=== PATIENT | female | born 1960 | race Caucasian/White ===

== ENCOUNTER 2018-12-04 13:47 | Emergency (ER) | payer MEDICARE ==
[~2018-12-04] VITALS: Ht 170.2 cm; Wt 84.4 kg
[~2018-12-04 13:47] MED LIST: ALPR0.25; OXYCONTIN; PRILOSEC; [UNRECOGNIZED DRUG - OTHER]; [UNRECOGNIZED DRUG - OTHER]; [UNRECOGNIZED DRUG - OTHER]
[2018-12-04] MEDS ORDERED: KETOROLAC TROMETH 60MG/2ML VIAL IM ONE (15:45)
[2018-12-04 15:57] VITALS: BP 127/85
== END 2018-12-04 16:00 | disposition home or self-care (01) ==
LOC: EDBD 13:47 → ER 13:53 → MERGE 13:53 → ER 16:00
DX: S70.01XA Contusion of right hip, initial encounter (principal); R51 Headache; M19.90 Unspecified osteoarthritis, unspecified site; Z88.5 Allergy status to narcotic agent; Z88.8 Allergy status to other drugs, medicaments and biological substances; W01.10XA Fall on same level from slipping, tripping and stumbling with subsequent striking against unspecified object, initial encounter; Y93.89 Activity, other specified; Y99.8 Other external cause status; Y92.89 Other specified places as the place of occurrence of the external cause
CPT/HCPCS: 70450; 96372; 99284; J1885

== ENCOUNTER 2022-06-09 02:45 | Emergency (ER) | payer MEDICARE, OTHER ==
[~2022-06-09] VITALS: Ht 170.2 cm; Wt 63.6 kg
[2022-06-09] MEDS ORDERED: SODIUM CHLORIDE 0.9% 1,000 ML IV ONE (03:45)
[2022-06-09 04:16] LABS: Basophils # (auto) 0.1 10 ^3/uL (0-0.2); Basophils % (auto) 1.2 % (0.0-2.0); Eosinophils # (auto) 0.1 10 ^3/uL (0-0.8); Eosinophils % (auto) 1.4 % (0.0-7.0); Hematocrit 36.2 % (36.0-46.0); Hemoglobin 12.5 g/dL (12.2-16.2); Lymphocytes # (auto) 3.7 10 ^3/uL (0.4-5.4); Mean Corpuscular Hemoglobin 30.4 pg (28.0-32.0); Mean Corpuscular Hgb Conc. 34.5 g/dL (32.0-36.0); Mean Corpuscular Volume 88.1 fL (80.0-100.0); Monocytes # (auto) 0.5 10 ^3/uL (0-1.3); Neutrophils # (auto) 3.6 10 ^3/uL (1.6-8.6); Neutrophils % (auto) 45.4 % (37.0-80.0); Nucleated Red Blood Cells % 0.1 %; Red Blood Cells 4.11 10^6/uL (4.0-5.20)
[2022-06-09 04:28] LABS: Albumin 2.8 g/dL (3.4-5.0); BUN/Creatinine Ratio 37.3 (10.0-20.0); Calcium 7.4 mg/dL (8.5-10.1); Magnesium 1.9 mg/dL (1.6-2.6)
[2022-06-09 04:30] LABS: Bilirubin, Total 0.1 mg/dL (0.2-1.0); Total Protein 5.4 g/dL (6.4-8.2)
[2022-06-09 04:31] LABS: Acetaminophen 16.2 ug/mL (10-30); Salicylate 3.8 mg/dL (2.8-20.0)
[2022-06-09 04:47] LABS: Potassium 2.9 mmol/L (3.5-5.1)
[2022-06-09] MEDS ORDERED: POTASSIUM CHL 20MEQ/100ML 100 ML IV SCH (05:15)
[2022-06-09 07:25] VITALS: BP 112/80
== END 2022-06-09 08:01 | disposition left against medical advice (07) ==
LOC: ER 02:45 → EDBD 02:45 → ER 08:01
DX: R00.1 Bradycardia, unspecified (principal); E87.6 Hypokalemia; T42.4X1A Poisoning by benzodiazepines, accidental (unintentional), initial encounter; R41.0 Disorientation, unspecified; F17.210 Nicotine dependence, cigarettes, uncomplicated; Z90.710 Acquired absence of both cervix and uterus; Y92.89 Other specified places as the place of occurrence of the external cause
CPT/HCPCS: 36415; 70450; 71045; 80053; 80320; 80329; 83735; 85025; 93005; 96361; 96365; 96366; 99291; J3480; J7030

== ENCOUNTER 2024-04-06 02:03 | Inpatient (IN) | payer BC, OTHER ==
[~2024-04-06] VITALS: Ht 167.6 cm; Wt 62.2 kg
--- NOTE | 2024-04-06 02:20 | ED.PDOC ---
History of Present Illness HPI Comments 63-year-old female came to the emergency room via EMS for shortness of breath. Patient has history of hypertension and COPD. Her the ground level fall last week, and she broke 7-8th left rib. 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 Allergies: Coded Allergies: Erythromycin (Unverified Allergy, Mild, 01/14/10) PT STATES SHE GETS A RASH Codeine (Verified Allergy, Unknown, 04/26/15) Diphenhydramine (Verified Allergy, Unknown, 12/05/18) Sulfamethoxazole w/Trimethoprim (Verified Allergy, Unknown, 01/10/16) Uncoded Allergies: ANTIHISTAMINES (Allergy, Unknown, 04/26/15) STEROIDS (Allergy, Unknown, 04/26/15) Home Meds Reported Medications [Prilosec] No Conflict Check 01/13/10 [Citoderm Patch] No Conflict Check 01/13/10 Alprazolam (Xanax) 0.25 Mg Tb 01/13/10 [Feorinal] No Conflict Check 01/13/10 [Oxycontin] No Conflict Check 01/13/10 [Tygan] No Conflict Check 01/13/10 Information Source: Patient, Emergency Med Personnel Mode of Arrival: EMS Severity: Moderate Timing: Hours Duration: Since onset Prehospital treatment: None Past Medical History PAST MEDICAL HISTORY: Anxiety, Cancer, COPD, HTN Past Medical History (Other): Chronic back pain Surgical History: , Hysterectomy Surgical History (Other): Left knee surgery LAPEL PADDER History: No Pertinent LAPEL PADDER History Family History Family History: Unobtainable Social History Smoker: Cigarettes, Less Than 1 Pack/Day Alcohol: Denies ETOH Use Drugs: Denies Drug Use Lives In: Home Constitutional: denies: chills, diaphoresis, fatigue, fever, malaise, sweats, weakness, others EENTM: denies: blurred vision, double vision, ear bleeding, ear discharge, ear drainage, ear pain, ear ringing, eye pain, eye redness, hearing loss, mouth pain, mouth swelling, nasal discharge, nose bleeding, nose congestion, nose pain, photophobia, tearing, throat pain, throat swelling, voice changes, others Respiratory: reports: SOB with excertion; denies: cough, hemoptysis, orthopnea, SOB at rest, shortness of breath, stridor, wheezing, others Cardiovascular: reports: chest pain; denies: dizzy spells, diaphoresis, Dyspnea on exertion, edema, irregular heart beat, left arm pain, lightheadedness, pal pitations, PND, syncope, others Gastrointestinal: denies: abdomen distended, abdominal pain, blood streaked bowels, constipated, diarrhea, dysphagia, difficulty swallowing, hematemesis, melena, nausea, poor appetite, poor fluid intake, rectal bleeding, rectal pain, vomiting, others Genitourinary: denies: abnormal vagina bleeding, burning, dyspareunia, dysuria, flank pain, frequency, hematuria, incontinence, pain, , vagina discharge, urgency, others Neurological: denies: dizziness, fainting, headache, left sided numbness, left sided weakness, numbness, paresthesia, pre-existing deficit, right sided numbness, right sided weakness, seizure, speech problems, tingling, tremors, weakness, others Musculoskeletal: denies: back pain, gout, joint pain, joint swelling, muscle pain, muscle stiffness, neck pain, others Integumetry: denies: bruises, change in color, change in hair/nails, dryness, laceration, lesions, lumps, rash, wounds, others Allergic/Immunocompromised: denies: Difficulty Healing, Frequent Infections, Hives, Itching, others Hematologic/Lymphatic: denies: anemia, blood clots, easy bleeding, easy b ruising, swollen glands, others Endocrine: denies: excessive hunger, excessive sweating, excessive thirst, excessive urination, flushing, intolerance to cold, intolerance to heat, unexplained weight gain, unexplained weight loss, others Psychiatric: denies: anxiety, bipolar disorder, depression, hopeless, panic disorder, schizophrenia, sleepless, suicidal, others Physical Exam General Appearance: No Apparent Distress, Normal HEENT: Normal ENT Inspection, Pharynx Normal, TMs Normal Neck: Full Range of Motion, Non-Tender, Normal, Normal Inspection Respiratory: Chest Non-Tender, Lungs Clear, No Accessory Muscle Use, No Respiratory Distress, Normal Breath Sounds Cardiovascular: No Edema, No JVD, No Murmur, No Gallop, Normal Peripheral Pulses, Regular Rate/Rhythm Breast Exam: Deferred Gastrointestinal: No Organomegaly, Non Tender, No Pulsatile Mass, Normal Bowel Sounds, Soft Genitalia: Deferred Pelvic: Deferred Rectal: Deferred Extremities: No calf tenderness, Normal capillary refill, Normal inspection, Normal range of motion, Non-tender, No pedal edema Musculoskeletal : Apperance: Normal Neurologic: Alert, color grinder II-XII nml as Tested, No Motor Deficits, Normal Affect, Normal Mood, No Sensory Deficits Cerebellar Function: Normal Reflexes: Normal Skin: Dry, Normal Color, Warm Lymphatic: No Adenopathy Was a procedure done? Was a procedure done?: No Differential Dx Considerations may include: Rib Fractures, pneumonia, COPD, anemia, anxiety X-Ray, Labs, Meds, VS Vital Signs Date Time Temp Pulse Resp B/P (MAP) Pulse Ox O2 Delivery O2 Flow Rate FiO2 04/06/24 02:15 97.6 60 18 138/85 (102) 96 04/06/24 02:05 60 Lab Test 04/06/24 02:20 Range/Units White Blood Count 7.2 4.4-10.8 10^3/uL Red Blood Count 4.51 4.0-5.20 10^6/uL Hemoglobin 13.4 12.2-16.2 g/dL Hematocrit 40.6 36.0-46.0 % Mean Corpuscular Volume 90.0 80.0-100.0 fL Mean Corpuscular Hemoglobin 29.7 28.0-32.0 pg Mean Corpuscular Hemoglobin Concent 33.0 32.0-36.0 g/dL Red Cell Distribution Width 14.5 H 11.8-14.3 % Platelet Count 362 140-450 10^3/uL Mean Platelet Volume 7.6 6.9-10.8 fL Neutrophils (%) (Auto) 50.4 37.0-80.0 % Lymphocytes (%) (Auto) 37.6 10.0-50.0 % Monocytes (%) (Auto) 8.6 0.0-12.0 % Eosinophils (%) (Auto) 1.5 0.0-7.0 % Basophils (%) (Auto) 1.9 0.0-2.0 % Neutrophils # (Auto) 3.6 1.6-8.6 10 ^3/uL Lymphocytes # (Auto) 2.7 0.4-5.4 10 ^3/uL Monocytes # (Auto) 0.6 0-1.3 10 ^3/uL Eosinophils # (Auto) 0.1 0-0.8 10 ^3/uL Basophils # (Auto) 0.1 0-0.2 10 ^3/uL Nucleated Red Blood Cells 0.0 % Sodium Level 142 136-145 mmol/L Potassium Level 4.5 3.5-5.1 mmol/L Chloride Level 107 98-107 mmol/L Carbon Dioxide Level 33 H 20-31 mmol/L Anion Gap 2 L 5-15 Blood Urea Nitrogen 8 L 9-23 mg/dL Creatinine 0.72 0.550-1.02 mg/dL Glomerular Filtration Rate Calc 94 >90 mL/min BUN/Creatinine Ratio 11.1 10.0-20.0 Serum Glucose 86 74-106 mg/dL Calcium Level 9.7 8.7-10.4 mg/dL Time of 1ST Reevaluation: 02:14 Reevaluation 1ST: Unchanged Patient Education/Counseling: Diagnosis, Treatment Family Education/Counseling: No Family Present Departure 1 Departure Time of Disposition: 04:21 (Patient with worsening shortness of breath. Labs and x-rays are benign. We will admit patient for further workup and expert consultation) Impression: Primary Impression: Shortness of breath Disposition: ADMITTED INPATIENT Admit to: Med Surg Condition: Serious Critical Care Note Critical Care Time?: No Stability Stability form required: No Heart Score Heart Score: Heart Score Response (Comments) Value History N/A 0 EKG N/A 0 Age N/A 0 Risk Factors N/A 0 Troponin N/A 0 Total 0 I personally scribed for CORETTA SHERIFF MD ([email or web address]) on 04/06/24 at 02:20. Electronically submitted by Fernando Rodriguez ([email or web address]). CORETTA SHERIFF MD Apr 06, 2024 02:20
[2024-04-06 02:33] LABS: Basophils # (auto) 0.1 10 ^3/uL (0-0.2); Basophils % (auto) 1.9 % (0.0-2.0); Eosinophils # (auto) 0.1 10 ^3/uL (0-0.8); Eosinophils % (auto) 1.5 % (0.0-7.0); Hematocrit 40.6 % (36.0-46.0); Hemoglobin 13.4 g/dL (12.2-16.2); Lymphocytes # (auto) 2.7 10 ^3/uL (0.4-5.4); Lymphocytes % (auto) 37.6 % (10.0-50.0); Mean Corpuscular Hemoglobin 29.7 pg (28.0-32.0); Monocytes # (auto) 0.6 10 ^3/uL (0-1.3); Monocytes % (auto) 8.6 % (0.0-12.0); Neutrophils # (auto) 3.6 10 ^3/uL (1.6-8.6); Neutrophils % (auto) 50.4 % (37.0-80.0); Platelet Count (auto) 362 10^3/uL (140-450); Red Blood Cells 4.51 10^6/uL (4.0-5.20); Red Cell Distribution Width 14.5 % (11.8-14.3); White Blood Cell 7.2 10^3/uL (4.4-10.8)
[2024-04-06 02:42] LABS: Potassium 4.5 mmol/L (3.5-5.1); Sodium 142 mmol/L (136-145)
[2024-04-06 02:43] LABS: Anion Gap 2 (5-15)
[2024-04-06 02:44] LABS: Calcium 9.7 mg/dL (8.7-10.4)
[2024-04-06 02:48] LABS: BUN/Creatinine Ratio 11.1 (10.0-20.0); Glucose 86 mg/dL (74-106)
[2024-04-06 02:59] LABS: Blood Urea Nitrogen 8 mg/dL (9-23); Carbon Dioxide 33 mmol/L (20-31); Chloride 107 mmol/L (98-107)
--- NOTE | 2024-04-06 04:08 | DVH ---
Examination: CXR2 Clinical Indication: left sided chest wall pain Comparison: None. Technique: Frontal and lateral radiograph of the chest was obtained. Findings: Right diaphragmatic hump is identified. Lungs are clear and well expanded with no pulmonary infiltrate or pleural effusion. There is no pneu mothorax. The cardiomediastinal silhouette is within normal limits. Atherosclerotic calcification of the aorti c arch. No acute osseous abnormality is seen. Degenerative changes in the cervical spine, mid and lower thor acic spine. Impression: No acute cardiopulmonary disease is seen. Electronically Signed 04/06/2024 04:06 Jeremy Matt
[2024-04-06] MEDS ORDERED: MORPHINE SULFATE INJ 2 MG/ml SYRG IV PRN (05:15)
[2024-04-06] MEDS ORDERED: ONDANSETRON HCL 4 MG/2 ML VIAL IV PRN (05:15)
[2024-04-06] MEDS ORDERED: NITROGLYCERIN 0.4 MG SL TAB SL PRN (05:15)
[2024-04-06] MEDS ORDERED: DOCUSATE SOD 100 MG CAP PO PRN (05:15)
[2024-04-06] MEDS ORDERED: ACETAMINOPHEN 325 MG TAB PO PRN (05:15)
--- NOTE | 2024-04-06 05:21 | DVHHP2 ---
History of Present Illness Reason for Visit: COPD with acute exacerbation History of Present Illness The patient is a 63-year-old female past medical history of chronic back pain, cancer, COPD, hypertension, and anxiety who presented to [facility] ED with complaint of shortness of breaths. Patient reports she had ground level fall last week with fractured injury in the 7- 8th left ribs, experiencing when coughing, increased work of breathing, left-sided chest pain, getting worse that prompted this visit. Patient was seen and evaluated in the ED, laboratory data shows WBC 7.2, platelets 362, sodium 142, potassium 4.5, BUN 8, creatinine 0.72, GFR 94, glucose 86, blood pressure 138/85, heart rate 62, temperature 97.6 F, O2 saturation 96% on oxygen. Please see medication orders section in the computer. On my assessment, patient denies chest pain at this moment, no headache, no dizziness, no diaphoresis, no abdominal pain, no diarrhea, no nausea, no vomiting, no fever, no chills. Patient was admitted for further evaluation and medical management. Past Medical History Anxiety, Cancer, COPD, HTN, Chronic back pain Past Surgical History , Hysterectomy, Left knee surgery Family History Reviewed, noncontributory to the management of this case. Past Social History The patient lives at home, denies smoking, alcohol or illicit drugs abuse. Review of Systems Constitutional: Yes: Weakness; No: Fever, Chills, Sweats, Malaise, Other Eyes: No: Pain, Vision change, Conjunctivae inflammation, Eyelid inflammation, Other, Redness ENT: No: Ear pain, Ear discharge, Nose pain, Nose discharge, Nose congestion, Mouth pain, Mouth swelling, Throat pain, Throat swelling, Other Respiratory: SOB with excertion; No: Cough, Dry, Shortness of breath, Wheezing, Hemoptysis, Pleuritic Pain, Sputum, Wheezing, Other Cardiovascular: Chest Pain; No: Palpitations, Orthopnea, Paroxysmal Noc. Dyspnea, Edema, Lt Headedness, Other Gastrointestinal: No: Nausea, Vomiting, Abdominal Pain, Diarrhea, Constipation, Melena, Hematochezia, Other Genitourinary: No Dysuria, No Frequency, No Incontinence, No Hematuria, No Retention, No Other Musculoskeletal: No: other, neck pain, shoulder pain, arm pain, back pain, hand pain, leg pain, foot pain Skin: No: Rash, Lesions, Jaundice, Bruising, Other Neurological: No: Weakness, Numbness, Incoordination, Change in speech, Confusion, Seizures, Other Allergies: Coded Allergies: Erythromycin (Unverified Allergy, Mild, 01/14/10) PT STATES SHE GETS A RASH Codeine (Verified Allergy, Unknown, 04/26/15) Diphenhydramine (Verified Allergy, Unknown, 12/05/18) Sulfamethoxazole w/Trimethoprim (Verified Allergy, Unknown, 01/10/16) Uncoded Allergies: ANTIHISTAMINES (Allergy, Unknown, 04/26/15) STEROIDS (Allergy, Unknown, 04/26/15) Exam Vital Signs Vital Signs Date Time Temp Pulse Resp B/P (MAP) Pulse Ox O2 Delivery O2 Flow Rate FiO2 04/06/24 02:15 97.6 60 18 138/85 (102) 96 General Appearance: Alert, Oriented X3, Cooperative, No acute distress HEENT: Atraumatic, PERRLA, EOMI, Mucous membr. moist/pink Respiratory: Clear to auscultation, Normal air movement Cardiovascular: Regular rate, Normal S1, Normal S2, No murmurs Abdominal: Normal bowel sounds, Soft, No tenderness, No hepatospenomegaly, No masses Extremities: No clubbing, No cyanosis, No edema, Normal pulses, No tenderness/swelling Skin: No rashes, No breakdown, No significant lesion Neuro: Normal speech, Normal tone, Sensation intact, Cranial nerves 3-12 NL, Reflexes 2+, Other (Generalized weakness) Psych/Mental Status: Mental status NL, Mood NL Labs/Xrays Labs Test 04/06/24 02:20 Range/Units White Blood Count 7.2 4.4-10.8 10^3/uL Red Blood Count 4.51 4.0-5.20 10^6/uL Hemoglobin 13.4 12.2-16.2 g/dL Hematocrit 40.6 36.0-46.0 % Mean Corpuscular Volume 90.0 80.0-100.0 fL Mean Corpuscular Hemoglobin 29.7 28.0-32.0 pg Mean Corpuscular Hemoglobin Concent 33.0 32.0-36.0 g/dL Red Cell Distribution Width 14.5 H 11.8-14.3 % Platelet Count 362 140-450 10^3/uL Mean Platelet Volume 7.6 6.9-10.8 fL Neutrophils (%) (Auto) 50.4 37.0-80.0 % Lymphocytes (%) (Auto) 37.6 10.0-50.0 % Monocytes (%) (Auto) 8.6 0.0-12.0 % Eosinophils (%) (Auto) 1.5 0.0-7.0 % Basophils (%) (Auto) 1.9 0.0-2.0 % Neutrophils # (Auto) 3.6 1.6-8.6 10 ^3/uL Lymphocytes # (Auto) 2.7 0.4-5.4 10 ^3/uL Monocytes # (Auto) 0.6 0-1.3 10 ^3/uL Eosinophils # (Auto) 0.1 0-0.8 10 ^3/uL Basophils # (Auto) 0.1 0-0.2 10 ^3/uL Nucleated Red Blood Cells 0.0 % Sodium Level 142 136-145 mmol/L Potassium Level 4.5 3.5-5.1 mmol/L Chloride Level 107 98-107 mmol/L Carbon Dioxide Level 33 H 20-31 mmol/L Anion Gap 2 L 5-15 Blood Urea Nitrogen 8 L 9-23 mg/dL Creatinine 0.72 0.550-1.02 mg/dL Glomerular Filtration Rate Calc 94 >90 mL/min BUN/Creatinine Ratio 11.1 10.0-20.0 Serum Glucose 86 74-106 mg/dL Calcium Level 9.7 8.7-10.4 mg/dL PATIENT: SARABJIT LYONS DACCT: [id number] UNIT: [id number] : 1960 LOC: ER ROOM / BED: / AGE / SEX: 63 / F ADM STATUS: REG ER SERVICE 1 ORDERING PHYSICIAN: CORETTA SHERIFF MD PROCEDURE(s): CXR2 - CHEST TWO VIEWS ROUTINE REASON: left sided chest wall pain ORDER NUMBER(s): [id number], ACCESSION NUMBER(s): [id number] Examination: CXR2 Clinical Indication: left sided chest wall pain Comparison: None. Technique: Frontal and lateral radiograph of the chest was obtained. Findings: Right diaphragmatic hump is identified. Lungs are clear and well expanded with no pulmonary infiltrate or pleural effusion. There is no pneumothorax. The cardiomediastinal silhouette is within normal limits. Atherosclerotic calcification of the aortic arch. No acute osseous abnormality is seen. Degenerative changes in the cervical spine, mid and lower thoracic spine. Impression: No acute cardiopulmonary disease is seen. Assessment/Plan Assessment/Plan Acute respiratory distress Generalized weakness Plan 1. Admit to telemetry unit 2. Breathing treatment 3. Pain control management 4. Management of fluids and electrolytes 5. Consultation for pulmonology 6. Diagnostic tests chest x-ray 7. DVT prophylaxis-on SCDs 8. Repeat labs CBC, CMP in a.m. 9. Continue with current medical management 10. Treatment plan discussed with patient and RN. Patient verbalized understanding. Plan discussed with: Patient, Other My Orders Orders - ALTHEA CLEVELAND DNP Procedure Category Date Status Time Complete Blood Count LAB 04/06/24 Transmitted 05:15 Basic Metabolic Panel LAB 04/06/24 Transmitted 05:15 Sodium Chloride Lock PHA 04/06/24 Transmitted (Saline Lock Ns) 06:00 Oxygen Per Hour RT 04/06/24 Transmitted 05:15 Ondansetron Hcl PHA 04/06/24 Transmitted (Zofran) 05:15 Docusate Sodium PHA 04/06/24 Transmitted Capsule (Colace 05:15 Fall Risk Precautions [facility] 04/06/[address] 05:15 Complete Blood Count LAB 04/07/24 Verified 04:00 Comprehensive LAB 04/07/24 Verified Metabolic Panel 04:00 Cardiac DIET 04/06/24 Transmitted Diet-2gna,Lofat,Lochol Breakfast Condition: Serious LC 04/06/24 Transmitted 05:15 Acetaminophen Tablet [facility] 04/06/24 Transmitted (Tylenol Tablet) 05:15 Sequential [facility] 04/06/24 Verified Compression Device Nitroglycerin [facility] 04/06/24 Verified Sublingual (Ntrostat 05:15 Morphine Sulfate [facility] 04/06/24 Verified Injection 05:15 Stat Ekg For Chest [facility] 04/06/24 Verified Pain 05:15 Notify Md Of Changes [facility] 04/06/24 Verified From Base 05:15 Cargo Trimmer For [facility] 04/06/24 Verified 24 Hours 05:15 Emergency Dysrhythmia [facility] 04/06/24 Verified Protocol 05:15 Rhythm Strips Once [facility] 04/06/24 Verified Every Shift 05:15 Oxygen By Nasal RT 04/06/24 Verified Cannula 05:15 *Consult CONS 04/06/24 Transmitted / 05:15 Admit ADMIT 04/06/24 Transmitted 05:15 Allergies LC 04/06/24 Transmitted 05:15 Code Status CODE 04/06/24 Transmitted 05:15 Problem List: (1) Acute respiratory distress (2) Generalized weakness Date of Service: Apr 06, 2024 Billing Provider: ALTHEA CLEVELAND DNP Common Visit Codes: [id number] INP/OBS CARE (HIGH) ALTHEA CLEVELAND DNP Apr 06, 2024 05:21
[2024-04-06 06:22] VITALS: PULSE 73; RESP 16; O2SAT 97
[2024-04-06] MEDS: SODIUM CHLOR 0.9% PF (SALINE LOCK) 10ML VIAL/SYR IV SCH (06:31)
--- NOTE | 2024-04-06 07:03 | ECG ---
[facility] Test Date: 2024-04-06 Test Time: 02:05:50 Pat Name: SARABJIT LYONS Department: er Room: [address] [place] [address] Gender: F Senior Contracts Administrator: aubrie : 1960 Requested By: EMERGENCY EMERGENCY Order Number: [id number] Reading MD: Herve Cooper Measurements Intervals Gerry Rate: 60 P: -16 ME: 139 QRS: 2 QRSD: 115 T: 12 QT: 455 QTc: 455 Interpretive Statements Sinus rhythm Nonspecific intraventricular conduction delay Nonspecific T abnormalities, anterior leads Electronically Signed On 04-06-2024 17:19:48 PST by Herve Cooper Please click the below link to view image of tracing.
[2024-04-06 07:33] VITALS: PULSE 62; RESP 16; O2SAT 97
[2024-04-06 10:30] VITALS: BP 177/95; PULSE 63; RESP 16; TEMP 97.7; O2SAT 96
[2024-04-06 10:42] VITALS: BP 177/95; PULSE 63; RESP 16; TEMP 97.7; O2SAT 96
[2024-04-06 12:00] VITALS: BP 167/137; PULSE 66; RESP 16; TEMP 97.7; O2SAT 97
[2024-04-06] MEDS ORDERED: ALPR2TAB2 PO ×2 (12:09→15:48)
[2024-04-06] MEDS ORDERED: PERCOT PO (12:09)
[2024-04-06] MEDS ORDERED: OXYC-963 (12:26)
[2024-04-06] MEDS ORDERED: LOSA-534 PO (12:30)
[2024-04-06] MEDS ORDERED: ESCI1TAB37 PO (12:30)
[2024-04-06] MEDS ORDERED: BUTA1CAP PO (12:30)
[2024-04-06] MEDS: OXYCODONE W/ ACETAMINOPHEN 5/325MG TABLET PO PRN (13:45)
--- NOTE | 2024-04-06 15:26 | DVH ---
XY L RIB X RAY HISTORY: concern for rib Fx 7-8 TECHNICAL DATA: Frontal and oblique views were obtained of the left ribs. COMPARISON: None FINDINGS: Mildly displaced fracture of the lateral 7th rib. Bone density and trabeculation are normal. IMPRESSION: Mildly displaced fracture of the lateral 7th rib.
[2024-04-06] MEDS: ALPRAZolam 0.5 MG TAB PO ONE (15:47)
[2024-04-06] MEDS ORDERED: PRED20TA2 PO (15:48)
[2024-04-06] MEDS ORDERED: AZIT500T66 PO (15:48)
--- NOTE | 2024-04-06 15:57 | DVHDS2 ---
Discharge Summary Date of Admission Apr 06, 2024 at 05:15 Date of Discharge: Apr 06, 2024 Admitting Diagnosis Shortness of breaths Labs/Diagnostic Data: Laboratory Results Test 04/06/24 02:20 White Blood Count 7.2 10^3/uL (4.4-10.8) Red Blood Count 4.51 10^6/uL (4.0-5.20) Hemoglobin 13.4 g/dL (12.2-16.2) Hematocrit 40.6 % (36.0-46.0) Mean Corpuscular Volume 90.0 fL (80.0-100.0) Mean Corpuscular Hemoglobin 29.7 pg (28.0-32.0) Mean Corpuscular Hemoglobin Concent 33.0 g/dL (32.0-36.0) Red Cell Distribution Width 14.5 % (11.8-14.3) Platelet Count 362 10^3/uL (140-450) Mean Platelet Volume 7.6 fL (6.9-10.8) Neutrophils (%) (Auto) 50.4 % (37.0-80.0) Lymphocytes (%) (Auto) 37.6 % (10.0-50.0) Monocytes (%) (Auto) 8.6 % (0.0-12.0) Eosinophils (%) (Auto) 1.5 % (0.0-7.0) Basophils (%) (Auto) 1.9 % (0.0-2.0) Neutrophils # (Auto) 3.6 10 ^3/uL (1.6-8.6) Lymphocytes # (Auto) 2.7 10 ^3/uL (0.4-5.4) Monocytes # (Auto) 0.6 10 ^3/uL (0-1.3) Eosinophils # (Auto) 0.1 10 ^3/uL (0-0.8) Basophils # (Auto) 0.1 10 ^3/uL (0-0.2) Nucleated Red Blood Cells 0.0 % Sodium Level 142 mmol/L (136-145) Potassium Level 4.5 mmol/L (3.5-5.1) Chloride Level 107 mmol/L (98-107) Carbon Dioxide Level 33 mmol/L (20-31) Anion Gap 2 (5-15) Blood Urea Nitrogen 8 mg/dL (9-23) Creatinine 0.72 mg/dL (0.550-1.02) Glomerular Filtration Rate Calc 94 mL/min (>90) BUN/Creatinine Ratio 11.1 (10.0-20.0) Serum Glucose 86 mg/dL (74-106) Calcium Level 9.7 mg/dL (8.7-10.4) Other Laboratory Tests 04/06/24 02:20 Brief Hx & Hospital Course: hpi: 63-year-old female past medical history of chronic back pain, cancer, COPD, hypertension, and anxiety who presented to [facility] ED with complaint of shortness of breaths. Patient reports she had ground level fall last week with fractured injury in the 7- 8th left ribs, experiencing when coughing, increased work of breathing, left-sided chest pain, getting worse that prompted this visit. Hospital course: labs vitrals stable. cxr unconcerning. left ribs xray showing Mildly displaced fracture of the lateral 7th rib. Patient blood pressure is elevated but patient was asymptomatic and without any end-organ damage, we will have to control outpatient with PCP. stable otherwise. stable to discharge per plan below. discharge diagnosis: left rib fracture, mild displaced; acute sinusitis; pleurisy; uncontrolled hypertension; discharge plan: - azithromycin 500mg daily for x 5 days - prednisone 40mg daily for x 3days - abdominal binder for restrict fracture motion. - xanax refill short course - home conservative therapy for sinusitis (warm fluids/soups, OTC cold syrups/medications, steam breathing treatments 2xday) - refer to orthopedic surgery outpatient - follow-up with PCP for discharge review and for xanax/opiate refills. Optimize blood pressure control. - continue other home medications. Visitation and planning required 35 minutes Condition at Discharge: Fair Final Diagnosis/Problems List left rib fracture, mild displaced; acute sinusitis; pleurisy; uncontrolled hypertension; Discharge Disposition: Home Discharge Instruct/Medications Diet: Regular Activity: Light activity Follow Up/Referral: pcp, ortho, Medications: below Discharge Statement: "Patient was advised to return to the ER or call 911 if any headaches, dizziness, shortness of breath, chest pain, abdominal pain, bleeding, fevers, or worsening of medical condition. Patient was counseled about treatment plan, medications, possible side effects, patientverbalized understanding. All questions were answered to the best of my ability. This discharge took greater then 30 minutes in planning, reviewing documentation, counseling the patient, and discussing with other team members." ASSESSMENT ASSESSMENT Assessment left rib fracture, mild displaced; acute sinusitis; pleurisy; uncontrolled hypertension; Date of Service: Apr 06, 2024 Billing Provider: GEN LEAVITT MD Common Visit Codes: [id number]/[id number] DISCH DAY >30min GEN LEAVITT MD Apr 06, 2024 15:57
[2024-04-06 16:05] VITALS: BP 142/89; PULSE 86; RESP 18; TEMP 98.6; O2SAT 96
--- NOTE | 2024-04-06 20:32 | DVHINCON2 ---
Date of service: Apr 06, 2024 Referring Physician Hernandez Gloria NP Reason for Consultation Acute respiratory distress, COPD, rib fracture. History of Present Illness A 63-year-old woman with past medical history of COPD, hypertension, cancer, anxiety and chronic back pain, who presents to ED with complaint of shortness of breath. Patient reports a ground-level fall last week with injury of 7- 8th left ribs, experiencing pain with coughing, increased work of breathing, left- sided chest pain, getting worse that prompted this visit. Workup in ED showed WBC 7.2, platelets 362, sodium 142, potassium 4.5, BUN 8, creatinine 0.72, GFR 94, glucose 86. Vitals showed BP 138/85, heart rate 62, temperature 97.6 F, O2 saturation 96% on oxygen. Patient was admitted for further care and pulmonary consultation is requested for evaluation and management d/t acute respiratory distress, COPD, rib fracture. Review of Systems: 14-point review of systems negative unless otherwise noted above. Past Medical History: Anxiety, Cancer, COPD, HTN, Chronic back pain Past Surgical History: , Hysterectomy, Left knee surgery Medications: Reviewed. Allergies: Erythromycin Codeine Diphenhydramine Sulfamethoxazole w/Trimethoprim ANTIHISTAMINES STEROIDS Family History: Hypertension Leukemia. Depression Social History: Nonsmoker. No alcohol or illicit drug use. Family History: FH: depression Hypertension in father Hypertension in mother Leukemia Allergies: Coded Allergies: Erythromycin (Unverified Allergy, Mild, 01/14/10) PT STATES SHE GETS A RASH Codeine (Verified Allergy, Unknown, 04/26/15) Diphenhydramine (Verified Allergy, Unknown, 12/05/18) Sulfamethoxazole w/Trimethoprim (Verified Allergy, Unknown, 01/10/16) Uncoded Allergies: ANTIHISTAMINES (Allergy, Unknown, 04/26/15) STEROIDS (Allergy, Unknown, 04/26/15) Home Meds Active Scripts Prednisone (Prednisone) 20 Mg Tab, 40 MG PO DAILY for 3 Days, #6 MG 0 Refills Prov:GEN LEAVITT MD 04/06/24 Azithromycin (Azithromycin) 500 Mg Tab, 1 TAB PO DAILY, #5 TAB Prov:GEN LEAVITT MD 04/06/24 Alprazolam (Xanax) 2 Mg Tab, 1 TAB PO TID for 5 Days, #15 TAB 0 Refills Prov:GEN LEAVITT MD 04/06/24 Reported Medications Fmojxenqxc-Wfhkmzwgffyxh-Krcby (Butalbital/Acetaminophen/ 50-300-40 mg) 1 Cap Cap, 1 CAP PO PRN for PAIN SCALE 1 THRU 6 04/06/24 Escitalopram Oxalate (ESCITALOPRAM OXALATE) 20 Mg Tab, 1 TAB PO DAILY 04/06/24 Losartan Potassium (Losartan Potassium) 50 Mg Tab, 1 TAB PO BID for blood pressure 04/06/24 Oxycodone W/ Acetaminophen (Oxycodone/Acetaminophen 10-300 mg) 1 Tab Tab 04/06/24 Current Medications Current Medications Medications (Trade) Dose Ordered Sig/Greg Route PRN Reason Start Time Stop Time Status Last Admin Sodium Chloride (Saline Lock Ns) 10 ml Q8HR IV 04/06/24 06:00 04/06/24 12:32 Ondansetron HCl (Zofran) 4 mg Q4HP PRN IV NAUSEA / VOMITING 04/06/24 05:15 Docusate Sodium (Colace Capsule) 100 mg BIDPRN PRN PO FOR CONSTIPATION 04/06/24 05:15 Acetaminophen (Tylenol Tablet) 650 mg Q6HP PRN PO PAIN SCALE 1-3 OR TEMP>100.4 04/06/24 05:15 Nitroglycerin (Ntrostat Sublingual) 0.4 mg Q5MINP PRN SL FOR CHEST PAIN 04/06/24 05:15 Morphine Sulfate 2 mg Q30M PRN IV FOR CHEST PAIN 04/06/24 05:15 Oxycodone/ Acetaminophen (Percocet 5/ 325MG Tablet) 2 tab Q4HP PRN PO MODERATE PAIN (4-6 PAIN SCALE) 04/06/24 12:45 04/06/24 13:45 Losartan Potassium (Cozaar Tablet) 50 mg BID PO 04/06/24 22:00 Vital Signs Vital Signs Date Time Temp Pulse Resp B/P (MAP) Pulse Ox O2 Delivery O2 Flow Rate FiO2 04/06/24 16:05 98.6 86 18 96 04/06/24 12:00 167/137 (147) 04/06/24 07:33 Room Air* 0 21 Physical Exam Gen.: Patient lying in bed in no apparent distress. Breathing on room air. Head: Normocephalic, atraumatic. Eyes: EOMI/PERRLA. Ears: Normal hearing. Normal anatomy. Neck/trachea: Trachea midline, supple. Nose: Normal external anatomy. Mouth: Moist mucous membranes. Chest: Decreased air entry bilaterally. No wheezing or rhonchi. Cardiovascular: Positive S1, positive S2. Regular rate and rhythm. Abdomen: Positive bowel sounds in all 4 quadrants. Soft, non-tender, non-distend ed. : Deferred. Rectal: Deferred. Skin: Warm, dry. Intact. Extremities: 2+ radial pulses bilaterally. No lower extremity edema. Neuro: Awake, alert, oriented x3. No gross motor or sensory deficits. Cranial nerves II through XII intact. Gait not assessed. Labs/Diagnostic Data Labs Test 04/06/24 02:20 Range/Units White Blood Count 7.2 4.4-10.8 10^3/uL Red Blood Count 4.51 4.0-5.20 10^6/uL Hemoglobin 13.4 12.2-16.2 g/dL Hematocrit 40.6 36.0-46.0 % Mean Corpuscular Volume 90.0 80.0-100.0 fL Mean Corpuscular Hemoglobin 29.7 28.0-32.0 pg Mean Corpuscular Hemoglobin Concent 33.0 32.0-36.0 g/dL Red Cell Distribution Width 14.5 H 11.8-14.3 % Platelet Count 362 140-450 10^3/uL Mean Platelet Volume 7.6 6.9-10.8 fL Neutrophils (%) (Auto) 50.4 37.0-80.0 % Lymphocytes (%) (Auto) 37.6 10.0-50.0 % Monocytes (%) (Auto) 8.6 0.0-12.0 % Eosinophils (%) (Auto) 1.5 0.0-7.0 % Basophils (%) (Auto) 1.9 0.0-2.0 % Neutrophils # (Auto) 3.6 1.6-8.6 10 ^3/uL Lymphocytes # (Auto) 2.7 0.4-5.4 10 ^3/uL Monocytes # (Auto) 0.6 0-1.3 10 ^3/uL Eosinophils # (Auto) 0.1 0-0.8 10 ^3/uL Basophils # (Auto) 0.1 0-0.2 10 ^3/uL Nucleated Red Blood Cells 0.0 % Sodium Level 142 136-145 mmol/L Potassium Level 4.5 3.5-5.1 mmol/L Chloride Level 107 98-107 mmol/L Carbon Dioxide Level 33 H 20-31 mmol/L Anion Gap 2 L 5-15 Blood Urea Nitrogen 8 L 9-23 mg/dL Creatinine 0.72 0.550-1.02 mg/dL Glomerular Filtration Rate Calc 94 >90 mL/min BUN/Creatinine Ratio 11.1 10.0-20.0 Serum Glucose 86 74-106 mg/dL Calcium Level 9.7 8.7-10.4 mg/dL Assessment Impression: Acute respiratory distress Generalized weakness Diaphragmatic hernia COPD Rib fracture, 7th rib Plan: On room air Supplemental oxygen PRN Titrate to keep O2 sats above 92%. CXR demonstrates no acute opacities, pleural effusion or pneumothorax Left rib x-ray demonstrates Mildly displaced fracture of the lateral 7th rib. Continue bronchodilators PRN Incentive spirometry Monitor renal function. Monitor electrolytes. Supplement as necessary. Monitor ins and outs. DVT prophylaxis. Prognosis: Poor given patient's multiple co-morbidities. Rest of plan per hospitalist and other consultants. Thank you, ENEDINA Gloria, for allowing me to participate in this patient's care. Further recommendations will depend on the patient's clinical course. Please do not hesitate to contact me if you have any questions or concerns. This medical document was created using an electronic medical record system with [email or web address] dictation system. Although these documentations are being carefully reviewed, there may still be some phonetic and typographical changes. The errors are purely typographical, due to imperfection on the software program, and do not reflect any compromise in the patient's medical care. Plan discussed with: Patient, Other (ALEX Che/ENEDINA Gloria/) ROSELINE FOLEY MD Apr 06, 2024 20:32
[2024-04-06] MEDS ORDERED: LOSARTAN POTASSIUM 50 MG TAB PO SCH (22:00)
== END 2024-04-06 15:50 | disposition home or self-care (01) | DRG 206 ==
LOC: ER 02:03 → EDBD 02:03 → TELE 05:15
PROVIDERS: ADMIT Nurse Practitioner Family; ATTEND Nurse Practitioner Family
DX: S22.32XA Fracture of one rib, left side, initial encounter for closed fracture (principal); J01.90 Acute sinusitis, unspecified; R09.1 Pleurisy; F17.210 Nicotine dependence, cigarettes, uncomplicated; I10 Essential (primary) hypertension; G89.29 Other chronic pain; M54.9 Dorsalgia, unspecified; K44.9 Diaphragmatic hernia without obstruction or gangrene; X58.XXXA Exposure to other specified factors, initial encounter; F41.9 Anxiety disorder, unspecified; Z88.3 Allergy status to other anti-infective agents; Z88.5 Allergy status to narcotic agent; Z90.710 Acquired absence of both cervix and uterus; Z81.8 Family history of other mental and behavioral disorders; Z82.49 Family history of ischemic heart disease and other diseases of the circulatory system; Z80.6 Family history of leukemia; Y93.89 Activity, other specified; Y92.89 Other specified places as the place of occurrence of the external cause; Y99.8 Other external cause status
CPT/HCPCS: 36415; 71046; 71101; 80048; 85025; 93005; G0378